=== PATIENT | female | born 1985 | race Caucasian/White ===

== ENCOUNTER → 2018-06-27 13:40 | Outpatient (CLI) | payer BC, SELFPAY ==
[2018-07-05 12:05] LABS: HPV Reflexed? NOT INDICATED
== END ==
PROVIDERS: Family Provider Family Medicine; PCP Family Medicine; Visit Provider Obstetrics & Gynecology
DX: Z12.4 Encounter for screening for malignant neoplasm of cervix (principal)
CPT/HCPCS: 88175; G0145

== ENCOUNTER → 2019-07-31 15:46 | Outpatient (CLI) | payer BC, SELFPAY ==
[2015-02-09 09:45] VITALS: BMI 26.7
[2019-07-31 19:59] LABS: Chlamydia Trachomatis by PCR Negative (Negative); Neisserai gonorrhoeae by PCR Negative (Negative); Probe Check PASS; Sample Adequacy Control PASS; Specimen Processing Control PASS
== END ==
PROVIDERS: Family Provider Family Medicine; PCP Family Medicine; Referring Provider Obstetrics & Gynecology; Visit Provider Obstetrics & Gynecology
DX: Z11.3 Encounter for screening for infections with a predominantly sexual mode of transmission (principal)
CPT/HCPCS: 87491; 87591

== ENCOUNTER → 2019-08-20 16:12 | Outpatient (CLI) | payer BC, SELFPAY ==
[2015-02-09 09:45] VITALS: BMI 26.7
[2019-08-20 17:36] LABS: Color, Urine Yellow (Yellow); Glucose, Dipstick Normal (Normal); Ketone-Dipstick Negative (Negative); Leukocyte Esterase-Dipstick 500 /ul (Negative); Nitrite-Dipstick Negative (Negative); Occult Blood-Urine Negative /ul (Negative); Protein-Dipstick Negative (Negative); Specific Gravity, Urine 1.015 (1.002-1.030); Urine Bilirubin Dipstick Negative (Negative); Urine Clarity Clear (Clear); Urine Urobilinogen Normal (Normal)
[2019-08-20 17:40] LABS: Absolute Lymphocyte Count 1.76 X10^3/uL (0.83-4.51); Absolute Neutrophil Count 5.7 X10^3/uL (2.0-7.7); Basophil# 0.04 X10^3/uL; Basophil% 0.5 % (0-1); Eosinophil# 0.12 X10^3/uL; Eosinophils% 1.4 % (0-5); Hematocrit 41.1 % (37-47); Hemoglobin 13.9 g/dL (12.0-15.0); Lymphocyte # 1.76 X10^3/ul (4.0); Lymphocyte % 21.2 % (19-41); Mean Corp Hgb Conc 33.8 g/dL (32-36); Mean Corpuscular Hgb 30.6 pg (27.0-32.0); Mean Corpuscular Volume 90.5 fL (81-99); Mean Platelet Vol. 10.2 fl (6.2-12.0); Monocyte# 0.69 X10^3/uL; Monocyte% 8.3 % (0-10); NRBC Flagged by Analyzer 0 % (0-5); Neutrophil # 5.67 X10^3/uL (2.7-7.7); Neutrophil % 68.2 % (47-70); Platelet Count 226 K/mm3 (150-450); RBC Distribution Width CV 12.2 % (11.6-14.6); RBC Distribution Width SD 40.3 fl (35.1-43.9); Red Blood Count 4.54 M/mm3 (4.2-5.4); White Blood Count 8.3 K/mm3 (4.4-11.0)
[2019-08-20 18:19] LABS: Amphetamine Urine VISTA NEGATIVE (<1000 ng/mL); Barbiturate Urine VISTA NEGATIVE (< 200 ng/mL); Benzodiazepine Urine VISTA NEGATIVE (< 200 ng/mL); Cocaine Urine VISTA NEGATIVE (< 300 ng/mL); Ecstacy Urine VISTA NEGATIVE (< 500 ng/mL); Methadone Urine VISTA NEGATIVE (< 300 ng/mL); PCP Urine VISTA NEGATIVE (< 25 ng/mL); THC Urine VISTA NEGATIVE (< 50 ng/mL); Thyroid Stim Hormone (TSH) 0.04 uIU/mL (0.358-3.74); Vista UDS pH Range 7
[2019-08-21 10:15] LABS: HIV - WCH Non-Reactive (Nonreactive); Hepatitis B Surface Antigen Non-Reactive (Nonreactive); Hepatitis C Antibody Non-Reactive (Nonreactive); Rubella IgG 64.9 IU/mL
[2019-08-21 19:06] LABS: Free T3 3.2 pg/mL (2.18-3.98); T4 Free Direct 1.06 ng/dL (0.76-1.46)
[2019-08-22 02:37] LABS: Prenatal RPR NONREACTIVE (NONREACTIVE)
== END ==
PROVIDERS: Visit Provider Obstetrics & Gynecology
DX: Z34.81 Encounter for supervision of other normal pregnancy, first trimester (principal)
CPT/HCPCS: 36415; 80307; 81002; 84439; 84443; 84481; 85025; 86703; 86762; 86803; 87340

== ENCOUNTER → 2020-01-01 16:27 | Outpatient (CLI) | payer BC, SELFPAY ==
[2015-02-09 09:45] VITALS: BMI 26.7
[2020-01-01 17:54] LABS: Hematocrit 38.9 % (37-47); Mean Corp Hgb Conc 33.4 g/dL (32-36); Mean Corpuscular Hgb 30.7 pg (27.0-32.0); Mean Corpuscular Volume 91.7 fL (81-99); Mean Platelet Vol. 10.6 fl (6.2-12.0); Platelet Count 199 K/mm3 (150-450); RBC Distribution Width CV 12.6 % (11.6-14.6); RBC Distribution Width SD 41.5 fl (35.1-43.9); Red Blood Count 4.24 M/mm3 (4.2-5.4)
[2020-01-01 17:56] LABS: Glucose Challenge Gest 1H 50g 125 mg/dL (70-140)
== END ==
PROVIDERS: Visit Provider Obstetrics & Gynecology
DX: Z34.83 Encounter for supervision of other normal pregnancy, third trimester (principal)
CPT/HCPCS: 36415; 82950; 85027

== ENCOUNTER → 2020-02-26 | Outpatient (CLI) | payer BC, SELFPAY ==
[2015-02-09 09:45] VITALS: BMI 26.7
== END | disposition home or self-care (01) ==
PROVIDERS: Referring Provider Obstetrics & Gynecology; Visit Provider Obstetrics & Gynecology
DX: Z36.85 Encounter for antenatal screening for Streptococcus B (principal)
CPT/HCPCS: 87081

== ENCOUNTER 2020-03-17 09:36 | Inpatient (IN) | payer BC, SELFPAY ==
[2015-02-09 09:45] VITALS: BMI 26.7
[2020-03-17] VITALS (27 sets, daily range): BP systolic 95–138; BP diastolic 51–80; PULSE 60–134; RESP 16–18; TEMP 36.7–37.5; O2SAT 94–99; BMI 27.7
--- NOTE | 2020-03-17 09:42 | PCM.HP.BLA ---
History and Physical Date of Admission: 03/17/20 [facility] [place] ANTEPARTUM RECORD - HISTORY AND PHYSICAL (03/17/2020) Name: XOCHITLLEYLA History of This : This is a 35-year-old 4 para 2 AB 1 who presents to labor and delivery in labor at 39+ weeks. care has been uneventful. OB Physician: ASHLEY Troy's Physician: UNDECIDED ...................................................................... : 1985 Age: 35 Address: [address] [place] [address] Phone: ([phone] Insurance Carrier: [employer] [facility] [id number] Emergency Contact: NICK LEUNG, SPOUSE [phone] ...................................................................... Final DAHIANA: 03/22/20 By Ultrasound: 9 weeks 2 days PARITY: (G-Total Pregnancies P-Fullterm,Premature,Induced AB,Spont AB, Ectopics, Multiple,Living) DAHIANA CONFIRMATION: By LMP: 06/16/19 Initial Exam: 03/22/20 By First Ultrasound Exam: 03/20/20 Final DAHIANA: 03/22/20 OB PROBLEM LIST: z--prefers to see see MD at visits and deliveries Declines AFP and CF testing. Childhood allergy to Codeine- unknown reaction. Malignant melanoma removed from back 2004 Follows up with derm ALLERGIES: Codeine Intolerance-unknown Codeine Unknown MEDICATIONS: 28 mg iron-800 mcg tablet One pill by mouth once a day SOCIAL HISTORY: Smoking - Never Alcohol Use - occasionally not while Diet - moderate, balanced diet and caffeine > 2 drinks per day Lifestyle - low stress lifestyle Exercise - minimal and Enc to walk 20 min every day Employer - [employer]. 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 Illicit Drug Use - None Sexual Activity - Residence - owns a home and LIves w husb and kids Place of - [place] Hours Worked - 45 Spouse-Sig Other Name - Nick Xochitl Spouse-Sig Other Occupation - In [employer] Spouse-Sig Other Phone No - [phone] Children Name(s) - Kelly Osullivan PRIOR DELIVERY HISTORY DEL DATE GEST LAB WT LB WT OZ TYPE ANES LABOR TX 03 Sep 11 5 0 0 0 Vag None No 14 Jan 15 41 1 7 0 Vag None No 18 Jul 12 42 7 7 11 Vag Epidural No ANTEPARTUM FLOW CHART VISIT GE RTC FU F F VT U U DATE WK MD WKS HT PN HR M SS BP ED WT VT GL D EF ST __ ____ ___ __ __ ___ __ __ __ ___ __ __ __ ___ __ 14 February JMW 1 39 V + + 120/68 sl 154 tr - 3 80 -2 07 February 37 JMW 1 38 V + + 132/78 sl 154 tr - 2 50 -2 30 Jan 36 JMW 1 36 V + + 122/74 sl 150 - - 1+ 75 -2 Jan JMW 1 37 + + 118/72 tr 148 tr - 05 Jan 23 JMW 3 28 + + 116/60 0 138 - - 04 Dec 22 JMW 4 24 + + 124/60 0 132 - - 09 Nov 17 JMW 4 20 on + 122/68 0 127 - - 11 Oct 13 JMW 3 16 + ? 106/68 0 119 - - 18 Sep 10 KW 4 + O 112/80 0 119 tr - 23 Aug 06 JMW 4 + US 128/70 0 114 tr - ANTEPARTUM NOTE(S): Mar 11 2020: see note March 04 2020: Ctxs-occas, Good FM Feb 25 2020: Good FM Feb 15 2020: Ctxs-mild, Good FM Jan 01 2020: see note, some crampiness Dec 02 2019: Glucola Given Nov 06 2020: Comp US today Oct 08 2019: Declines AFP, Periodic Vulva/Vaginal Itching Sep 15 2019: feeling well. Aug 20 2019: Sono,PNV and NOB Today,Nausea/Fatigue Daily COMPREHENSIVE ANTEPARTUM NOTE(S): Mar 11 2020: Leyla is here for a PNV. Good FM. Sl edema in hands and fingers. Reports Nikolay Alaniz everyday, all day. Cervical check requested. GOPAL Mar 01 2020: H& taken to OB. tkg Feb 26 2020: Reporting [place] Alaniz every day. NO spotting. NO leaking fluid. Good FM. GBS done. LARC form signed -- declines. Doing well. Following COVID precautions. kbm Jan 01 2020: Leyla is here for a PNV. She is doing well. Good FM. No edema. No complaints at this time. Blood draw today. GOPAL Dec 02 2019: Good FM. Voicing no concerns today. Glucola bottle and instructions given today to be done next visit. Sep 15 2019: Feeling wel, nausea and fatigue resolvingl; denies cramping, VB, LOF; traveling to [place] in September, discussed wearing compression knee highs and walking around [place] once/hour; discussed warning signs, s/s PTL; RTO 4 weeks for PNV - KVW Aug 20 2019: Leyla is here with 4 yo Kelly for NOB nurse visit with DAHIANA March 22, 2020 planning a vag del at [facility], probably without an epidural, unsure of ped care post delivery as Dr Kingston is retiring. She does plan to breastfeed. Leyla is a G 4 P 3 with I SAB who works 45 h/w at [employer] as reuse technician. She has a 7 yo daughter, Shi also. Both labors were short w minimal pushing. Her , Nick works at [employer] as a marine machinist. They are happy about the pg. Leyla is allergic to Codeine from childhood with an unknown reaction. She is a lifetime non smoker, has no ETOH use in pg and denies street drug use past or present. Her diet is balanced with one cup of coffee daily and lots of water. Importance of protein in her diet discussed. She is active with her family after work but does no regular exercise. Enc to walk 20 min q day or use their elliptical. Genetics Screening form completed noting no family issues and she takes only vitamins. She declines AFP and CF tests. Warning signs in pg reviewed as well as OTC meds ok to take, lifting restriction of 25#, seatbelt is to be worn low on abdomen and how to reach the office after hours with understanding voiced. She has a copy of What to Expect. She's had chickenpox and they have only outdoor cats- she is aware of litter box issues. Routine labs drawn today and US done. Enc to call w any concerns. [facility] Sibling Class suggested. Visit took approx 35 min. Yamileth CERRATO. NEW Aug 01 2019: GC and chlamydia NEG. EB Jul 31 2019: Leyla presents here today for Missed Menses appointment. 34 y.o. G 4 P 2 non-smoker with regular menses and LMP of 06-16-19 lasting her average of 5-6 days. UPT is positive today in our Office. Reports had a slight brownish colored discharge about a week ago, with nothing since that time. Having slight nausea and tender breasts. Currently taking an OTC Vitamin with Educational Materials given. History of all normal pap screenings since 2011 with last in 2018. Medication and Allergy lists up-dated. MARIA DE JESUS Jul 31 2019: ok REVIEW OF SYSTEMS: GENERAL - Denies fever, or chills SKIN - Denies rash, new skin lesions, or change in moles EYES - Denies blurred vision, or change in visual acuity EARS - Denies ear pain, or difficulty hearing NOSE - Denies nasal congestion, discharge, or bleeding MOUTH - Denies sore throat, or difficulty swallowing NECK - Denies pain or swelling RESPIRATORY - Denies shortness of breath, cough, wheezing CARDIOVASCULAR - Denies palpitations, chest pain, orthopnea, PND, peripheral edema, syncope or claudication GASTROINTESTINAL - Denies nausea, vomiting, diarrhea, constipation, Denies abdominal pain, melena and or bright red blood GENITOURINARY - Denies dysuria, frequency of urination, urgency, or hesitancy MUSCULOSKELETAL - Denies joint or muscle pain, or back pain NEUROLOGICAL - Denies localized numbness, weakness, or tingling PSYCHIATRIC - Denies depression, anxiety, substance abuse or suicide attempts ENDOCRINE - Denies heat or cold intolerance, weight loss or gain, increasing thirst HEMATO-IMMUNOLOGIC - Denies easy bruising, bleeding, oral ulcerations or recurrent infections GENETICS SCREENING: Age 35+ years: No Thalassemia: No Neural Tube Defect: No Down Syndrome: No SHERICE-SACHS: No Sickle Cell Disease: No Hemophilia: No Musc. Dystrophy: No Cystic Fibrosis: No-declines screening Holmes Chorea: No Mental Retardation: No Fragile X: No Other genetic: No Other defects: No SABs/still births: Yes x1 Drugs since LMP: No INFECTION HISTORY: High risk AIDS: No High risk Hepatitis: No Exposed to TB: No Exposed to Herpes: No Rash/viral illness since LMP: No History of STD: No MENSTRUAL HISTORY: *Menses Amount/Duration: 6-7 DAYSMenses Regularity: RegularFrequency: monthlyMenarche (Age Onset): 14* PAST SUMMARY: PARITY: 1. Total Pregnancies............ 4 2. Full Term Pregnancies........ 2 3. Premature.................... 0 4. Abortions - Induced.......... 0 5. Abortions - Spontaneous...... 1 6. Ectopics..................... 0 7. Multiple Births.............. 0 8. Living Children.............. 2 PAST #1: Date of :.................. 09/30/11 Gestation Weeks:................ 5 Length of labor(hours):......... 0 Sex:............................ Weight-lbs:............... 0 Weight-oz:................ 0 Type of Delivery:............... Vag Type of Anesthesia:............. None Place of Delivery:.............. HOME Treatment of Labor?:.... No Comment: SAB PAST #2: Date of :.................. 08/15/12 Gestation Weeks:................ 42 Length of labor(hours):......... 7 Sex:............................ F Weight-lbs:............... 7 Weight-oz:................ 11 Type of Delivery:............... Vag Type of Anesthesia:............. Epidural Place of Delivery:.............. [place] Treatment of Labor?:.... No Comment: IND POST DATES PAST #3: Date of :.................. 02/09/15 Gestation Weeks:................ 41 Length of labor(hours):......... 1 Sex:............................ F Weight-lbs:............... 7 Weight-oz:................ 0 Type of Delivery:............... Vag Type of Anesthesia:............. None Place of Delivery:.............. [place] Treatment of Labor?:.... No Comment: RAPID! PHYSICAL EXAMINATION General Appearence: 35 yo female in no acute distress Vital Signs: AF, VSS Heart: RRR without rubs or gallops Lungs: CTA x 2 Breasts: deferred Abdomen: gravid Pelvis: Cervix: 5 cm / 90% effaced Presentation: cephalic Station: -2 Fetus: Size: AGA Movement: present Heart: present Labs for : LEYLA LEUNG since 06/26/2019 ORDER DATEIN DESCRIPTION VALUE UNITS RANGE A+ COMMENT CULTURE, GROUP B STREPTOCOCCUS 02/26/20 NOTE Original Ordering Provider: Mani Russell KJ Culture Group B Beta Streptococcus is not isolated. Reviewed by MANI GLUCOSE CHALLENGE GEST 1H 50G 01/01/20 NOTE Original Ordering Provider: Mani Russell GLU GEST 50G 1H 125 mg/dL 70-140 Reviewed by MANI CBC-COMPLETE BLOOD CNT NO DIFF 01/01/20 NOTE Original Ordering Provider: Mani Russell WBC 10.0 K/mm3 4.4-11.0 RBC 4.24 M/mm3 4.2-5.4 HGB 13.0 g/dL 12.0-15.0 HCT 38.9 % 37-47 MCV 91.7 fL 81-99 MCH 30.7 pg 27.0-32.0 MCHC 33.4 g/dL 32-36 RDW CV 12.6 % 11.6-14.6 RDW SD 41.5 fl 35.1-43.9 PLT 199 K/mm3 150-450 MPV 10.6 fl 6.2-12.0 Reviewed by MANI RPR 08/20/19 NOTE Original Ordering Provider: Mani Russell RPR NONREACTIVE NONREACTIVE Reviewed by MANI THYROID STIM HORMONE (TSH) 08/20/19 NOTE Original Ordering Provider: Mani Russell TSH 0.04 uIU/mL 0.358-3.74 L T4 FREE DIRECT 08/20/19 NOTE Original Ordering Provider: Mani Russell T4 FREE DIRECT 1.06 ng/dL 0.76-1.46 Reviewed by MANI FREE T3 08/20/19 NOTE Original Ordering Provider: Mani Russell FREE T3 3.2 pg/mL 2.18-3.98 Reviewed by MANI HEPATITIS C ANTIBODY 08/20/19 NOTE Original Ordering Provider: Mani Russell HEPATITIS C AB Non-Reactive Nonreactive Non Reactive: < 0.8 Equivocal: >/= 0.8 to < 1.0 Reactive: >/= 1.0 The CDC recommends that a reactive/equivocal HCV antibody result be followed up by the HCV Nucleic Acid Amplification test (964652) Reviewed by MANI HEPATITIS B SURFACE ANTIGEN 08/20/19 NOTE Original Ordering Provider: Mani Russell HEPB SURFACE AG Non-Reactive Nonreactive Reviewed by MANI HIV - [facility] 08/20/19 NOTE Original Ordering Provider: Mani Russell HIV - [facility] Non-Reactive Nonreactive Reviewed by MANI RUBELLA IGG 08/20/19 NOTE Original Ordering Provider: Mani Russell RUBELLA IGG 64.9 IU/mL Antibody results Interpretation of Immune Status < 5 IU/ml Presumed Non-immune 5 - < 10 IU/ml Equivocal > or = 10 IU/ml Presumed Immune Reviewed by MANI T AND S-NO CHARGE W/PNP 08/20/19 Reason for Type AND Screen/Red Cells: Surgery? N [facility]~[address] [place], [address]~ BLOOD TYPE GEL O POSITIVE N AB SCREEN GEL NEGATIVE N Reviewed by MANI URINE DRUG SCREEN (VISTA) 08/20/19 NOTE Original Ordering Provider: Mani Russell TO BE CONFIRMED CONFIRMATORY TESTING FOR ALL POSITIVE URINE DRUG SCREEN RESULTS WILL ONLY BE SENT OUT UPON PHYSICIAN ORDER. VISTA Urine Drug Screen methods provide only preliminary analytical test results. A more specific alternate chemical method must be used in order to obtain a confirmed analytical result. Gas chromatography/mass spectrometery (GC/MS) is the preferred confirmatory method. Clinical consideration and professional judgement should be applied to any drug of abuse test result, particularly when preliminary positive results are used. URINE TCA TESTING MUST BE ORDERED SEPARATELY. USE TEST MNEMONIC: [facility]IST[facility] UDS PH 7 AMPHETAMINES NEGATIVE <1000 ng/mL BARBITIURATES NEGATIVE < 200 ng/mL BENZODIAZIPINE NEGATIVE < 200 ng/mL COCAINE NEGATIVE < 300 ng/mL ECSTACY NEGATIVE < 500 ng/mL METHADONE NEGATIVE < 300 ng/mL OPIATES NEGATIVE < 300 ng/mL PCP NEGATIVE < 25 ng/mL THC NEGATIVE < 50 ng/mL Reviewed by MANI Reviewed by MANI CBC W/DIFF, AUTOMATED 08/20/19 NOTE Original Ordering Provider: Mani Russell WBC 8.3 K/mm3 4.4-11.0 RBC 4.54 M/mm3 4.2-5.4 HGB 13.9 g/dL 12.0-15.0 HCT 41.1 % 37-47 MCV 90.5 fL 81-99 MCH 30.6 pg 27.0-32.0 MCHC 33.8 g/dL 32-36 RDW CV 12.2 % 11.6-14.6 RDW SD 40.3 fl 35.1-43.9 PLT 226 K/mm3 150-450 MPV 10.2 fl 6.2-12.0 NEUT% 68.2 % 47-70 LY% 21.2 % 19-41 MONO% 8.3 % 0-10 EO% 1.4 % 0-5 BASO% 0.5 % 0-1 IM GRAN % 0.400 % 0.0-0.9 IG% - Immature Granulocytes (promyelocytes, myelocytes and metamyelocytes) > 1% indicates that a LEFT SHIFT is Present. ABSOLUTE NEUT 5.7 X10 3/uL 2.0-7.7 ABSOLUTE LYMPH 1.76 X10 3/uL 0.83-4.51 NRBC, FLAGGED 0 % 0-5 Reviewed by MANI URINALYSIS, ROUTINE (DIPSTICK) 08/20/19 NOTE Original Ordering Provider: Mani Russell COLOR Yellow Yellow CLARITY Clear Clear GLUCOSE, UR Normal mg/dl Normal BILIRUBIN URINE Negative mg/dL Negative KETONE UR Negative mg/dl Negative SP.GR. DIPSTX 1.015 1.002-1.030 PH UR 8.0 5.0 - 8.0 PROT DIPSTX Negative mg/dl Negative UROBILI Normal mg/dl Normal NITRITE UR Negative Negative OCCULT BLOOD-UR Negative /ul Negative LEUK ESTERASE 500 /ul Negative H Reviewed by MANI CT/DEEJAY [facility] BY PCR 07/31/19 NOTE Original Ordering Provider: Mani Russell [facility] PCR Negative Negative NG BY PCR Negative Negative Reviewed by SIMONA Impression /Plan: 39+ week intrauterine in active labor. Preparations in progress for delivery.
[2020-03-17] MEDS: Lactated Ringers 1,000 ML 50 ML IV (10:10)
[2020-03-17 10:27] LABS: ROM Internal Control Test YES-OK TO RESULT pt. (Internal QC); ROM Patient Test Negative (Negative)
[2020-03-17 10:43] LABS: Absolute Lymphocyte Count 1.75 X10^3/uL (0.83-4.51); Basophil# 0.04 X10^3/uL; Basophil% 0.4 % (0-1); Eosinophil# 0.07 X10^3/uL; Eosinophils% 0.7 % (0-5); Hematocrit 42.8 % (37-47); Hemoglobin 13.7 g/dL (12.0-15.0); Lymphocyte # 1.75 X10^3/ul (4.0); Lymphocyte % 18.4 % (19-41); Mean Corpuscular Hgb 28.5 pg (27.0-32.0); Mean Corpuscular Volume 89.2 fL (81-99); Mean Platelet Vol. 11.6 fl (6.2-12.0); Monocyte# 0.61 X10^3/uL; Monocyte% 6.4 % (0-10); NRBC Flagged by Analyzer 0 % (0-5); Neutrophil % 73.7 % (47-70); Platelet Count 203 K/mm3 (150-450); RBC Distribution Width SD 42.6 fl (35.1-43.9); White Blood Count 9.5 K/mm3 (4.4-11.0)
--- NOTE | 2020-03-17 14:56 | OP.PCM_ITS ---
Vaginal Delivery Maternal Presentation: Active Labor Amniotic Membrane Rupture Type: Artificial Amniotic Fluid Description: Lightly stained meconium Final DAHIANA: 03/22/20 Final DAHIANA Source: US <20 weeks Gestational age: 39 Weeks and 2 Days doctor who attended delivery (if requested by OB): Laura Lopez Date of Procedure: 03/17/20 Pre-Operative Diagnosis: IUP Post-Operative Diagnosis: IUP Surgery/ Procedure Performed: Spontaneous Vaginal Delivery Type of Anesthesia: Epidural Description of Procedure: Spontaneous vaginal delivery of a viable male with Apgars of 8/9 from an occiput anterior presentation with lightly stained meconium fluid and three- vessel placenta. Cord around neck and body tight x2. First-degree midline episiotomy extended to a second-degree midline laceration repaired in layers with 3-0 Rapide suture under epidural. Sponges okay. Delivery physician: Julio Russell MD. Presentation: Vertex Placental Delivery Description: Spontaneous Placenta Disposition: [facility] Cord Vessel Description: 3 Vessels Cord Gases drawn per routine: ABG Cord Entanglement: Around neck x 1, loose, - - Cord around the neck x1 tight and around body x1 tight Estimated Blood Loss: 250 cc Infant A gender: Male (1 minute): 8 (5 minute): 9 Episiotomy Description: Midline, 1st degree Laceration: Midline, 2nd degree Medications given after delivery: IV Pitocin Complications: None
--- NOTE | 2020-03-17 14:59 | DCINST_ITS ---
<Julio Russell - Last Filed: 03/17/20 14:59> Discharge Diet: No Restrictions Discharge Activity: May Shower, May Take a Tub Bath May resume sexual activity in: 4-6 weeks Additional Activity Instructions:: Nothing in the vagina for 4-6 weeks. You may return to work/school in 6 weeks. Call your doctor if you observe: Inability to urinate, Inability to have a bowel movement, Using more than one pad per hour Additional Instructions: If you experience any of the following, contact your healthcare provider. * Bleeding that soaks a pad every hour for 2 hours * Fever 100.4 or higher * Unrelieved incision or abdominal pain * Swelling, redness, discharge or bleeding from your incision or episiotomy site * Your incision begins to separate * Problems urinating (including inability to urinate or burning while urinating). * Visual changes * Severe headache * Flu-like symptoms * Pain or redness in one of both of your breasts * Pain, warmth, tenderness or swelling in your legs, especially the calf area * Frequent nausea and vomiting * Symptoms of depression or anxiety If you experience any of the following, call 911 or go to the nearest Emergency Room. * Chest pain * Problems breathing * Seizure activity * Partial or complete paralysis of a body part, slurred speech, weakness or drooping of the face, or a sudden inability to walk or hold your balance Allergies/Adverse Reactions: Allergies codeine Allergy (Verified 03/17/20 09:56) Other when was a baby, unsure of reaction Medications to take at Discharge Vits [Prenatabs FA] 1 tablet PO DAILY 02/09/15 Please Follow Up With: Julio Russell MD - [phone] When: Call to make an appointment with your doctor in 6 weeks. Primary Care Physician: Care Physician,No Primary [Primary Care Provider] - Test Results: Test results from this visit will be discussed in further detail at your follow- up appointment, if applicable. <Criss Wilkerson - Last Filed: 03/18/20 08:23> Additional Instructions: If you experience any of the following, contact your healthcare provider. * Bleeding that soaks a pad every hour for 2 hours * Fever 100.4 or higher * Unrelieved incision or abdominal pain * Swelling, redness, discharge or bleeding from your incision or episiotomy site * Your incision begins to separate * Problems urinating (including inability to urinate or burning while urin ating). * Visual changes * Severe headache * Flu-like symptoms * Pain or redness in one of both of your breasts * Pain, warmth, tenderness or swelling in your legs, especially the calf area * Frequent nausea and vomiting * Symptoms of depression or anxiety If you experience any of the following, call 911 or go to the nearest Emergency Room. * Chest pain * Problems breathing * Seizure activity * Partial or complete paralysis of a body part, slurred speech, weakness or drooping of the face, or a sudden inability to walk or hold your balance Test Results: Test results from this visit will be discussed in further detail at your follow- up appointment, if applicable.
--- NOTE | 2020-03-17 14:59 | PCM.DCVAG ---
<Julio Russell - Last Filed: 03/17/20 14:59> Discharge Diet: No Restrictions Discharge Activity: May Shower, May Take a Tub Bath May resume sexual activity in: 4-6 weeks Additional Activity Instructions:: Nothing in the vagina for 4-6 weeks. You may return to work/school in 6 weeks. Call your doctor if you observe: Inability to urinate, Inability to have a bowel movement, Using more than one pad per hour Additional Instructions: If you experience any of the following, contact your healthcare provider. Bleeding that soaks a pad every hour for 2 hours Fever 100.4 or higher Unrelieved incision or abdominal pain Swelling, redness, discharge or bleeding from your incision or episiotomy site Your incision begins to separate Problems urinating (including inability to urinate or burning while urinating). Visual changes Severe headache Flu-like symptoms Pain or redness in one of both of your breasts Pain, warmth, tenderness or swelling in your legs, especially the calf area Frequent nausea and vomiting Symptoms of depression or anxiety If you experience any of the following, call 911 or go to the nearest Emergency Room. Chest pain Problems breathing Seizure activity Partial or complete paralysis of a body part, slurred speech, weakness or drooping of the face, or a sudden inability to walk or hold your balance Allergies/Adverse Reactions: Allergies codeine Allergy (Verified 03/17/20 09:56) Other when was a baby, unsure of reaction Medications to take at Discharge Vits [Prenatabs FA] 1 tablet PO DAILY 02/09/15 Please Follow Up With: Julio Russell MD - [phone] When: Call to make an appointment with your doctor in 6 weeks. Primary Care Physician: Care Physician,No Primary [Primary Care Provider] - Test Results: Test results from this visit will be discussed in further detail at your follow-up appointment, if applicable. <Criss Wilkerson - Last Filed: 03/18/20 08:23> Additional Instructions: If you experience any of the following, contact your healthcare provider. Bleeding that soaks a pad every hour for 2 hours Fever 100.4 or higher Unrelieved incision or abdominal pain Swelling, redness, discharge or bleeding from your incision or episiotomy site Your incision begins to separate Problems urinating (including inability to urinate or burning while urinating). Visual changes Severe headache Flu-like symptoms Pain or redness in one of both of your breasts Pain, warmth, tenderness or swelling in your legs, especially the calf area Frequent nausea and vomiting Symptoms of depression or anxiety If you experience any of the following, call 911 or go to the nearest Emergency Room. Chest pain Problems breathing Seizure activity Partial or complete paralysis of a body part, slurred speech, weakness or drooping of the face, or a sudden inability to walk or hold your balance Test Results: Test results from this visit will be discussed in further detail at your follow-up appointment, if applicable.
[2020-03-17] MEDS: Lactated Ringers 500 ML 999 ML IV (15:00)
[2020-03-17] MEDS: Oxytocin 30 units/NS 500 ml 30 UNITS/500 ML IV.SOLN 334 UNITS IV (15:40)
[2020-03-17] MEDS: Ibuprofen 600 MG Tablet PO (16:09)
[2020-03-18] MEDS: Ibuprofen 600 MG Tablet PO ×2 (03:13→16:55)
[2020-03-18 03:43] VITALS: BP 117/66; PULSE 68; RESP 18; TEMP 37.1
--- NOTE | 2020-03-18 08:19 | PN.OBGYN_ITS ---
Subjective: Feeling good today. Whole body is sore from long labor and pushing, but ready to go home. son well. Denies heavy bleeding. Mild cramps with and slight pulling at incision. Passing flatus and urinating okay with no issues Objective: VSS. Fundus is firm, midline, u/1. Lochia rubra moderate. - Physical Exam Vitals/I&O's: Vital Signs Temp Pulse Resp BP Pulse Ox 98.8 F 68 18 117/66 99 03/18/20 03:43 03/18/20 03:43 03/18/20 03:43 03/18/20 03:43 03/17/20 13:50 Oxygen Delivery Method Room Air Weight: 71 kg Body Mass Index (BMI) 27.7 Intake and Output for Last 24 Hours 03/16/20 03/17/20 03/18/20 23:59 23:59 23:59 Intake Total 1641.67 / 1641.67 Output Total 800 / 800 Balance 841.67 / 841.67 General: Alert, Oriented x3, Cooperative HEENT: Atraumatic, PERRLA, EOMI, Normocephalic Neck: Supple, No JVD, Negative Carotid Bruits Lungs: Clear to auscultation, Normal air movement Cardiovascular: Regular rate, No murmurs Abdomen: Bowel Sounds Present, Soft, Non Tender Extremities: No edema, Capillary Refill Less than 3 Seconds Skin: No rashes, No breakdown Musculoskeletal: No Tenderness to Palpation of Joints or Extremities Neurological: Cranial nerves II-XII grossly intact Psych/Mental Status: Normal Affect, Appropriate Laboratory Results 03/17/20 09:50: Vag Amniotic Fld Detect Negative 03/17/20 10:05: WBC 9.5, RBC 4.80, Hgb 13.7, Hct 42.8, MCV 89.2, MCH 28.5, MCHC 32.0, RDW Std Deviation 42.6, RDW Coeff of Gud[place] 13.0, Plt Count 203, MPV 11.6, Immature Gran % (Auto) 0.400, Neut % (Auto) 73.7 H, Lymph % (Auto) 18.4 L, [place] % (Auto) 6.4, Eos % (Auto) 0.7, Baso % (Auto) 0.4, Absolute Neuts (auto) 7.0, Absolute Lymphs (auto) 1.75, Nucleated RBC % 0 03/17/20 10:05: Blood Type O POSITIVE, Antibody Screen NEGATIVE Current Medications Acetaminophen (Tylenol) 1,000 mg PO Q8H PRN PRN PRN Reason: Pain Score 1-3/10 Bisacodyl (Dulcolax) 10 mg RECTAL UD PRN PRN Reason: If no BM Dibucaine (Dibucaine) 1 applic TOPICAL TID PRN PRN; Protocol PRN Reason: Discomfort Hydrocortisone (Hytone) 1 applic TOPICAL TID PRN PRN; Protocol PRN Reason: Discomfort Ibuprofen (Motrin) 600 mg PO Q6H PRN PRN PRN Reason: Pain Score 1-3/10 Last Admin: 03/18/20 03:13 Dose: 600 mg Documented by: Methylergonovine Maleate (Methergine) 0.2 mg IM X1 PRN PRN Reason: Excess bleeding/uterine atony Ondansetron HCl (Zofran) 4 mg IV Q4H PRN PRN PRN Reason: Nausea Oxycodone HCl (Oxyir) 5 - 10 mg PO Q4H PRN PRN PRN Reason: Pain Score 4-10/10 Senna/Docusate Sodium (Senokot-S, Mandie-Colace) 1 - 2 tablet PO DAILY PRN PRN PRN Reason: Constipation Simethicone (Mylicon) 80 mg PO PCHS PRN PRN Reason: Indigestion/Stomach pain Sodium Chloride () 5 - 15 ml IV UD PRN PRN Reason: SALINE FLUSH Zolpidem Tartrate (Ambien (Generic)) 5 mg PO QHS PRN PRN PRN Reason: Insomnia Medical Necessity - Tobacco Use Smoking Status: Never smoker Assessment/Plan A/P: at S/P day #1 of a viable male infant mother Dyad stable Continue orders Will discharge today if son's bilirubin level is okay, but if not will discharge tomorrow Follow up for PP visit in [address] Russell
[2020-03-18 09:10] VITALS: BP 95/66; PULSE 73; RESP 16; TEMP 36.9
[2020-03-18 13:00] VITALS: BP 106/67; PULSE 63; RESP 16; TEMP 37.1
[2020-03-18 17:00] VITALS: BP 100/62; PULSE 70; RESP 18; TEMP 36.8
== END 2020-03-18 18:25 | disposition home or self-care (01) | DRG 807 ==
LOC: WPOUT 09:37 → WP 09:37
PROVIDERS: Obstetrics & Gynecology; Admitting Provider Obstetrics & Gynecology; Referring Provider Obstetrics & Gynecology; Visit Provider Obstetrics & Gynecology
DX: O77.0 Labor and delivery complicated by meconium in amniotic fluid (principal); Z37.0 Single live birth; O70.1 Second degree perineal laceration during delivery; O69.1XX0 Labor and delivery complicated by cord around neck, with compression, not applicable or unspecified; O69.89X0 Labor and delivery complicated by other cord complications, not applicable or unspecified; Z3A.39 39 weeks gestation of pregnancy
CPT/HCPCS: 59025; 59050; 84112; 85025; 86850; 86900; 86901; 99218; J7120; G0378

== ENCOUNTER → 2020-05-12 | Outpatient (CLI) | payer BC, SELFPAY ==
[2020-03-17 09:57] VITALS: BMI 27.7
[2020-05-17 12:50] LABS: HPV Reflexed? NOT INDICATED
== END | disposition home or self-care (01) ==
LOC: LABSPEC 13:16
PROVIDERS: Visit Provider Obstetrics & Gynecology
DX: Z12.4 Encounter for screening for malignant neoplasm of cervix (principal)
CPT/HCPCS: 88175; G0145

== ENCOUNTER → 2022-04-13 | Outpatient (CLI) | payer BC, SELFPAY ==
[2022-04-18 15:08] LABS: HPV Reflexed? NOT INDICATED
== END | disposition home or self-care (01) ==
LOC: WOBLAB 13:47
PROVIDERS: Visit Provider Obstetrics & Gynecology
DX: Z12.4 Encounter for screening for malignant neoplasm of cervix (principal)
CPT/HCPCS: 88175; G0145

== ENCOUNTER → 2025-01-06 | Outpatient (CLI) | payer BC, SELFPAY ==
[2025-01-06 12:48] LABS: Absolute Lymphocyte Count 1.21 X10^3/uL (0.83-4.51); Absolute Neutrophil Count 4.4 X10^3/uL (2.0-7.7); Basophil# 0.04 X10^3/uL; Basophil% 0.7 % (0-1); Eosinophil# 0.02 X10^3/uL; Eosinophils% 0.3 % (0-5); Hematocrit 41.5 % (37-47); Hemoglobin 13.4 g/dL (12.0-15.0); Lymphocyte # 1.21 X10^3/ul (0.83-4.51); Lymphocyte % 20.5 % (19-41); Mean Corp Hgb Conc 32.3 g/dL (32-36); Mean Corpuscular Hgb 27.8 pg (27.0-32.0); Mean Corpuscular Volume 86.1 fL (81-99); Mean Platelet Vol. 10.7 fl (6.2-12.0); Monocyte# 0.24 X10^3/uL; Monocyte% 4.1 % (0-10); NRBC Flagged by Analyzer 0 % (0-5); Neutrophil # 4.36 X10^3/uL (2.7-7.7); Neutrophil % 74.1 % (47-70); Platelet Count 290 K/mm3 (150-450); RBC Distribution Width CV 13.2 % (11.6-14.6); RBC Distribution Width SD 41.3 fl (35.1-43.9); Red Blood Count 4.82 M/mm3 (4.2-5.4); White Blood Count 5.9 K/mm3 (4.4-11.0)
[2025-01-06 13:52] LABS: ALB/GLOB Ratio 1.5 RATIO (0.9-2.4); AST(SGOT) 24 U/L (<=31); Alanine Aminotransfer ALT/SGPT 13 U/L (<=34); Albumin, Serum 4.9 g/dL (3.5-5.0); Alkaline Phosphatase 47 U/L (35-104); Anion Gap 13 (5-15); BUN 16 mg/dL (4-19); BUN/Creat Ratio 26.7 RATIO (10-20); Calcium,Total 9.8 mg/dL (7.6-11.0); Chloride 100 mmol/L (98-108); EST Glomerular Filtration Rate 117 (>60); Globulin 3.2 g/dL (2.2-4.2); Glucose 101 mg/dL (70-99); Luteinizing Hormone 9.3 mIU/mL; Potassium 3.8 mmol/L (3.3-5.1); Protein, Total 8.2 g/dL (5.9-8.4); Sodium Level 136 mmol/L (133-145); Thyroid Stim Hormone (TSH) 0.719 uIU/mL (0.300-4.200); Total Bilirubin 0.84 mg/dL (0.00-1.30)
[2025-01-06 14:17] LABS: Follicle Stimulating Hormone 5.1 mIU/mL
[2025-01-15 15:08] LABS: Estrogen, Total, Serum 518 pg/mL (.); Testosterone, % Free 2.62 % (0.50-2.80); Testosterone, Total 23 ng/dL (8-60)
== END | disposition home or self-care (01) ==
LOC: MFPLAB 09:41
PROVIDERS: PCP Family Medicine; Referring Provider Family Medicine; Visit Provider Family Medicine
DX: R42 Dizziness and giddiness (principal); R23.2 Flushing; R00.0 Tachycardia, unspecified
CPT/HCPCS: 36415; 80053; 82306; 82672; 83001; 83002; 84402; 84403; 84443; 85025